=== PATIENT | female | born 1955 | race Caucasian/White ===

== ENCOUNTER 2017-06-08 05:21 | Inpatient (IN) | payer BC ==
[2017-05-29 15:46] VITALS: BP 112/74
[~2017-06-08] VITALS: Ht 176.5 cm; Wt 79.9 kg
[~2017-06-08 05:21] MED LIST: ALPH300C PO; AMIT10TA PO; CALC-316 PO; CETI10TA24 PO; CHOL2000 PO; CHOL20002 PO; CHOL40002 PO; CYCL-259 PO; DULO60CA55 PO; FENO145T13 PO; FENO145T32 PO; LEVO5TAB29 PO; LORA10TA75 PO; MAGN500C PO; METF500T4 PO; OMEG1CAP23 PO; OXYC1TAB7 PO; PANT20TA3 PO; PANT40TA5 PO; POTA10TA5 PO; PREG150C PO; PREG75CA PO; PROP20TA PO; UBID100C24 PO; VITA1CAP PO
[2017-06-08] MEDS ORDERED: LIDOCAINE 1%, 2ML ONE (07:22)
[2017-06-08] MEDS ORDERED: DEXTROSE 50%, 50ML SYRINGE IVPush PRN (07:30)
[2017-06-08] MEDS ORDERED: DEXTROSE 4 GM TAB.CHEW PO PRN (07:30)
[2017-06-08] MEDS ORDERED: DIAZEPAM 5 MG TABLET PO PRN (07:30)
[2017-06-08] MEDS ORDERED: ONDANSETRON 4 MG TABLET PO PRN (07:30)
[2017-06-08] MEDS ORDERED: ALUMINUM/MAG/SIMETHICONE 30 ML UDC PO PRN (07:30)
[2017-06-08] MEDS ORDERED: MAGNESIUM HYDROXIDE 8%, 30ML UDC PO PRN (07:30)
[2017-06-08] MEDS ORDERED: NS + 20MEQ KCL 1,000 ML IV SCH (07:30)
[2017-06-08] MEDS ORDERED: SENNA/DOCUSATE TABLET PO PRN (07:30)
[2017-06-08] MEDS ORDERED: ACETAMINOPHEN 650 MG/20.3 ML UDC PO PRN (07:30)
[2017-06-08] MEDS ORDERED: GLUCAGON 1 MG IM PRN (07:30)
[2017-06-08] MEDS ORDERED: SCOPOLAMINE PATCH, 1.5MG PATCH.TD72 TD SCH (07:30)
[2017-06-08] MEDS ORDERED: ONDANSETRON 2MG/ML, 2ML IV PRN (07:30)
[2017-06-08] MEDS ORDERED: BISACODYL 10 MG SUPP PR PRN (07:30)
[2017-06-08] MEDS ORDERED: ROPIvacaine/PF 0.5%, 20 ML ONE (07:31)
[2017-06-08] MEDS ORDERED: MIDAZOLAM 1 MG/ML, 2ML ONE (07:32)
[2017-06-08] MEDS ORDERED: FENTANYL PF 100 MCG/2ML ONE ×2 (07:32)
[2017-06-08] MEDS ORDERED: VANCOMYCIN 1,000 MG ONE (07:33)
[2017-06-08] MEDS ORDERED: ROPIvacaine/PF 0.2%, 20 ML ONE (07:33)
[2017-06-08] MEDS ORDERED: KETOROLAC 60 MG/2 ML ONE (07:33)
[2017-06-08] MEDS ORDERED: TRANEXAMIC ACID 100 MG/ML, 10ML ONE ×4 (07:34→09:46)
[2017-06-08] MEDS ORDERED: EPINEPHRINE 1 MG/ML, 1ML ONE (07:34)
[2017-06-08] MEDS ORDERED: VANCOMYCIN PER PHARMACY MC ONE (07:37)
[2017-06-08] MEDS ORDERED: LACTATED RINGERS 1,000 ML IV SCH (07:57)
[2017-06-08] MEDS ORDERED: ONDANSETRON 2MG/ML, 2ML ONE (07:57)
[2017-06-08] MEDS ORDERED: CEFAZOLIN 1,000 MG ONE (07:57)
[2017-06-08] MEDS ORDERED: PROPOFOL 10 MG/ML, 20ML ONE (07:57)
[2017-06-08] MEDS ORDERED: VANCOMYCIN 1,400 MG in SODIUM CHLORIDE 0.9% 250 ML IV ONE (08:30)
[2017-06-08] MEDS ORDERED: PROMETHAZINE 25 MG/ML, 1ML IV PRN (09:00)
[2017-06-08] MEDS ORDERED: EPHEDRINE 50 MG/ML, 1ML IVPush PRN (09:00)
[2017-06-08] MEDS: SODIUM CHLORIDE FLUSH 10ML SYR IVF SCH ×2 (09:00→20:23)
[2017-06-08] MEDS ORDERED: HYDROmorphone 1 MG/ML, 1ML IV PRN (09:00)
[2017-06-08] MEDS: DOCUSATE 100 MG CAPSULE PO SCH ×2 (09:00→20:24)
[2017-06-08] MEDS ORDERED: MIDAZOLAM 1 MG/ML, 2ML IV PRN (09:00)
[2017-06-08] MEDS ORDERED: ACETAMINOPHEN 325 MG TABLET PO PRN (09:00)
[2017-06-08] MEDS ORDERED: MEPERIDINE/PF 25MG/0.5ML IVPush PRN (09:00)
[2017-06-08] MEDS ORDERED: hydrALAzine 20 MG/ML, 1ML IV PRN (09:00)
[2017-06-08] MEDS ORDERED: OXYcodone 5 MG/5 ML ORAL.SOL UDC PO PRN (09:00)
[2017-06-08] MEDS ORDERED: FENTANYL PF 100 MCG/2ML IV PRN (09:00)
[2017-06-08] MEDS ORDERED: HYDROcodone/APAP 7.5-325MG/15ML UDC PO PRN (09:00)
[2017-06-08] MEDS ORDERED: ONDANSETRON 2MG/ML, 2ML IVPush PRN (09:00)
[2017-06-08] MEDS ORDERED: LABETALOL 5MG/ML, 20ML IV PRN (09:00)
[2017-06-08] MEDS: INSULIN REGULAR 100 UNITS/ML, 3ML VIAL SQ-INSULIN SCH ×3 (11:00→21:39)
[2017-06-08 11:10] VITALS: BP 98/69
[2017-06-08] MEDS ORDERED: AMITRIPTYLINE 10 MG TABLET PO PRN (11:30)
[2017-06-08] MEDS ORDERED: CETIRIZINE 10 MG TABLET PO PRN (12:00)
[2017-06-08] MEDS: OXYcodone IR 5MG TABLET PO PRN ×2 (12:48→16:45)
[2017-06-08] MEDS: DIPHENHYDRAMINE 25 MG CAPSULE PO PRN ×2 (12:48→18:19)
[2017-06-08] MEDS: CALCIUM/VITAMIN D3 250-125 TABLET PO SCH ×2 (12:49→20:37)
[2017-06-08 13:55] VITALS: BP 122/69
[2017-06-08] MEDS: HYDROmorphone 1 MG/ML, 1ML IV PRN ×4 (14:59→22:56)
[2017-06-08] MEDS: metFORMIN 500 MG TABLET PO SCH (16:38)
[2017-06-08] MEDS: CEFAZOLIN PMX 1GM/50ML 50 ML IVPB SCH (16:38)
[2017-06-08] MEDS: ASPIRIN 81 MG TABLET EC PO SCH (18:18)
[2017-06-08 19:46] VITALS: BP 122/69
[2017-06-08] MEDS: CHOLECALCIFEROL 1,000 UNIT TABLET PO SCH (20:37)
[2017-06-08] MEDS ORDERED: LEVOCETIRIZINE 5 MG HOMEMEDPO SCH (21:00)
[2017-06-08] MEDS ORDERED: DULOXETINE 30 MG CAPSULE.DR PO SCH (21:00)
[2017-06-08] MEDS ORDERED: MAGNESIUM OXIDE 400 MG TABLET PO SCH (21:00)
[2017-06-08] MEDS: NS + 20MEQ KCL 1,000 ML IV SCH (22:56)
[2017-06-08 23:56] VITALS: BP 130/76
[2017-06-09] MEDS: HYDROcodone/APAP 10/325 MG TABLET PO PRN ×3 (00:32→09:27)
[2017-06-09] MEDS: DIPHENHYDRAMINE 25 MG CAPSULE PO PRN (00:32)
[2017-06-09] MEDS: CEFAZOLIN PMX 1GM/50ML 50 ML IVPB SCH (00:33)
[2017-06-09] MEDS: HYDROmorphone 1 MG/ML, 1ML IV PRN (03:55)
[2017-06-09 03:56] VITALS: BP 131/72
[2017-06-09 05:27] LABS: HEMOGLOBIN 11.7 g/dL (11.7-16.4)
[2017-06-09] MEDS ORDERED: DEXAMETHASONE 4 MG/ML, 1ML IVPush SCH (06:00)
[2017-06-09] MEDS: ASPIRIN 81 MG TABLET EC PO SCH (06:29)
[2017-06-09] MEDS: INSULIN REGULAR 100 UNITS/ML, 3ML VIAL SQ-INSULIN SCH (07:00)
[2017-06-09] MEDS ORDERED: KETOROLAC 30 MG/1 ML IV SCH (07:30)
[2017-06-09] MEDS ORDERED: HYDROmorphone 2MG TABLET PO PRN (07:30)
[2017-06-09] MEDS ORDERED: DIPHENHYDRAMINE 25 MG CAPSULE PO PRN (07:30)
[2017-06-09] MEDS ORDERED: PANTOPRAZOLE 20MG TABLET PO SCH (07:30)
[2017-06-09] MEDS: NS + 20MEQ KCL 1,000 ML IV SCH (08:00)
[2017-06-09] MEDS: metFORMIN 500 MG TABLET PO SCH (08:13)
[2017-06-09] MEDS: DOCUSATE 100 MG CAPSULE PO SCH (08:13)
[2017-06-09] MEDS: CALCIUM/VITAMIN D3 250-125 TABLET PO SCH (08:14)
[2017-06-09] MEDS: SODIUM CHLORIDE FLUSH 10ML SYR IVF SCH (08:14)
[2017-06-09] MEDS: CHOLECALCIFEROL 1,000 UNIT TABLET PO SCH (08:14)
[2017-06-09] MEDS ORDERED: PROPRANOLOL 20 MG TABLET PO SCH (09:00)
[2017-06-09] MEDS ORDERED: ASPI-496 PO (10:31)
[2017-06-09 10:36] VITALS: BP 121/64
[2017-06-09] MEDS ORDERED: HYDR-3307 PO (11:25)
[2017-06-09] MEDS ORDERED: HYDR2TAB29 PO (11:26)
[2017-06-09] MEDS ORDERED: ASPI-621 PO (11:46)
[2017-06-09] MEDS ORDERED: DIPH25TA28 PO (11:50)
[2017-06-09] MEDS ORDERED: CELE200C PO (11:51)
[2017-06-09] MEDS ORDERED: DIAZ5TAB PO (11:54)
[2017-06-09] MEDS ORDERED: DOCU-131 PO (11:56)
[2017-06-09] MEDS ORDERED: ONDA4TAB10 PO (12:07)
== END 2017-06-09 12:03 | disposition home or self-care (01) | DRG 470 ==
LOC: ORIP 05:21 → 4NOR 11:02 → DCLOUNGE 06-09 11:12
PROVIDERS: ADMIT Orthopaedic Surgery; ATTEND Orthopaedic Surgery
PROC: 0SRC0J9 Replacement of Right Knee Joint with Synthetic Substitute, Cemented, Open Approach (ICD-10-PCS; principal; 2017-06-08 12:30)
DX: M17.11 Unilateral primary osteoarthritis, right knee (principal); E11.9 Type 2 diabetes mellitus without complications; Z88.0 Allergy status to penicillin; Z88.1 Allergy status to other antibiotic agents; Z88.8 Allergy status to other drugs, medicaments and biological substances; K21.9 Gastro-esophageal reflux disease without esophagitis; Z93.2 Ileostomy status
CPT/HCPCS: 36415; 82962; 85014; 85018; C1713; J0171; J0690; J1100; J1170; J1885; J2250; J2405; J2704; J2795; J3010; J3370; J3480; C1776; Q0163

== ENCOUNTER 2017-07-11 04:37 | Emergency (ER) | payer BC ==
[~2017-07-11] VITALS: Ht 175.3 cm; Wt 68.0 kg
[~2017-07-11 04:37] MED LIST changes: +ASPI-496 PO; +ASPI-621 PO; +CELE200C PO; +DIAZ5TAB PO; +DIPH25TA28 PO; +DOCU-131 PO; +HYDR-3307 PO; +HYDR2TAB29 PO; -MAGN500C PO; +MAGN500C9 PO; +ONDA4TAB10 PO
[2017-07-11] MEDS ORDERED: MELO15TA24 PO (04:49)
[2017-07-11 06:13] LABS: HEMATOCRIT 43.2 % (34.6-47.8); HEMOGLOBIN 14.6 g/dL (11.7-16.4); WHITE BLOOD COUNT 9.1 x10^3/uL (3.4-10)
[2017-07-11 06:19] LABS: ASPARTATE AMINO TRANSFERASE 17 U/L (15-37); BLOOD UREA NITROGEN 34 mg/dL (7-18)
[2017-07-11 06:27] LABS: IS PT STATUS REG ER OR PRE ER? YES
[2017-07-11] MEDS ORDERED: SODIUM CHLORIDE 0.9% 1,000ML IVBOLUS ONE (07:30)
[2017-07-11] MEDS ORDERED: HYDROcodone/APAP 5/325 TABLET ONE (07:35)
[2017-07-11] MEDS ORDERED: HYDROcodone/APAP 5/325 TABLET PO ONE (08:00)
[2017-07-11 08:17] VITALS: BP 102/64
== END 2017-07-11 08:19 | disposition home or self-care (01) ==
LOC: ED 06:53
DX: S09.90XA Unspecified injury of head, initial encounter (principal); S89.91XA Unspecified injury of right lower leg, initial encounter; R55 Syncope and collapse; E86.0 Dehydration; Z96.651 Presence of right artificial knee joint; W18.09XA Striking against other object with subsequent fall, initial encounter; Y93.89 Activity, other specified; Y92.89 Other specified places as the place of occurrence of the external cause; Y99.8 Other external cause status
CPT/HCPCS: 36415; 70450; 73564; 80053; 84484; 85025; 93005; 96360; 99285; J7030

== ENCOUNTER 2018-07-06 16:20 | Emergency (ER) | payer BC ==
[~2018-07-06] VITALS: Ht 177.8 cm; Wt 77.7 kg
[~2018-07-06 16:20] MED LIST changes: -CHOL20002 PO; +CHOL200052 PO; -FENO145T13 PO; +FENO145T30 PO; +MELO15TA24 PO; +METF500T17 PO; -METF500T4 PO
[2018-07-06] MEDS ORDERED: SODIUM CHLORIDE FLUSH 10ML SYR IVF ONE (16:30)
[2018-07-06 16:58] VITALS: BP 138/82
[2018-07-06] MEDS ORDERED: CYAN25009 PO (17:02)
[2018-07-06 17:04] LABS: BASOPHILS # (AUTO) 0.02 x10^3/uL (0-0.1); BASOPHILS % (AUTO) 0 % (0-1); EOSINOPHILS # (AUTO) 0.63 x10^3/uL (0-0.4); EOSINOPHILS % (AUTO) 6 % (1-7); LYMPHOCYTES # (AUTO) 0.82 x10^3/uL (1-3.4); LYMPHOCYTES % (AUTO) 8 % (22-44); MD NO; MEAN CORPUSCULAR HEMOGLOBIN 29.6 pg (27.0-34.8); MEAN CORPUSCULAR HGB CONC 34.6 g/dL (32.4-35.8); MEAN CORPUSCULAR VOLUME 85.4 fL (80-100); MEAN PLATELET VOLUME 6.9 fL (7.4-10.4); MONOCYTES # (AUTO) 0.48 x10^3/uL (0.2-0.8); MONOCYTES % (AUTO) 5 % (2-9); NEUTROPHILS # (AUTO) 8.24 x10^3/uL (1.8-6.8); NEUTROPHILS % (AUTO) 81 % (42-75); PLATELET COUNT 290 x10^3/uL (130-400); RED BLOOD COUNT 4.97 x10^6/uL (3.82-5.3); RED CELL DISTRIBUTION WIDTH 12.9 % (9.6-15.2)
[2018-07-06 17:12] LABS: ALANINE AMINOTRANSFERASE 30 U/L (12-78); ALBUMIN 3.7 g/dL (3.4-5.0); ANION GAP 6 mmol/L (5-15); CALCIUM 9.3 mg/dL (8.5-10.1); CHLORIDE 102 mmol/L (98-107)
[2018-07-06 17:15] LABS: ALKALINE PHOSPHATASE 87 U/L (45-117); BILIRUBIN,TOTAL 0.6 mg/dL (0.2-1.0); TOTAL PROTEIN 7.9 g/dL (6.4-8.2)
[2018-07-06] MEDS ORDERED: ONDANSETRON ODT 4 MG ONE (18:25)
[2018-07-06 18:48] LABS: MICROSCOPIC NOT IND
[2018-07-06 18:52] LABS: CULTURE INDICATED? NO
== END 2018-07-06 19:29 | disposition home or self-care (01) ==
LOC: ED 17:55
DX: R10.9 Unspecified abdominal pain (principal); Z90.49 Acquired absence of other specified parts of digestive tract; Z96.651 Presence of right artificial knee joint
CPT/HCPCS: 36415; 74021; 80053; 81003; 83690; 85025; 99285

== ENCOUNTER 2018-08-05 06:53 | Emergency (ER) | payer BC ==
[~2018-08-05] VITALS: Ht 175.3 cm; Wt 73.4 kg
[~2018-08-05 06:53] MED LIST changes: +CYAN25009 PO
[2018-08-05] MEDS ORDERED: ONDANSETRON ODT 4 MG PO ONE (07:30)
[2018-08-05] MEDS ORDERED: SODIUM CHLORIDE 0.9% 1,000ML IVBOLUS ONE (07:30)
[2018-08-05 08:10] LABS: BASOPHILS # (AUTO) 0.03 x10^3/uL (0-0.1); BASOPHILS % (AUTO) 0 % (0-1); EOSINOPHILS % (AUTO) 11 % (1-7); LYMPHOCYTES # (AUTO) 0.69 x10^3/uL (1-3.4); LYMPHOCYTES % (AUTO) 11 % (22-44); MD NO; MEAN CORPUSCULAR HEMOGLOBIN 28.8 pg (27.0-34.8); MEAN CORPUSCULAR HGB CONC 33.9 g/dL (32.4-35.8); MEAN PLATELET VOLUME 7.3 fL (7.4-10.4); MONOCYTES % (AUTO) 9 % (2-9); NEUTROPHILS # (AUTO) 4.37 x10^3/uL (1.8-6.8); NEUTROPHILS % (AUTO) 68 % (42-75); PLATELET COUNT 229 x10^3/uL (130-400); RED BLOOD COUNT 5.32 x10^6/uL (3.82-5.3); RED CELL DISTRIBUTION WIDTH 12.9 % (9.6-15.2)
[2018-08-05 08:21] LABS: ALBUMIN 4.2 g/dL (3.4-5.0); ANION GAP 9 mmol/L (5-15); CALCIUM 9.6 mg/dL (8.5-10.1); CHLORIDE 100 mmol/L (98-107); CREATININE 1.56 mg/dL (0.55-1.02)
[2018-08-05 10:38] VITALS: BP 103/66
[2018-08-05 10:57] LABS: CLOSTRIDIUM DIFFICILE ANTIGEN NEGATIVE; CLOSTRIDIUM DIFFICILE TOXIN NEGATIVE (Negative)
== END 2018-08-05 11:40 | disposition home or self-care (01) ==
LOC: ED 09:54
DX: K52.89 Other specified noninfective gastroenteritis and colitis (principal); Z90.49 Acquired absence of other specified parts of digestive tract; E11.9 Type 2 diabetes mellitus without complications
CPT/HCPCS: 36415; 74022; 80048; 82040; 85025; 87324; 89055; 96360; 99285; J7030